=== PATIENT | female | born 2000 | race Hispanic/Latino ===

== ENCOUNTER 2019-12-24 18:54 | Emergency (ER) | payer OTHER ==
[2019-12-24] MEDS ORDERED: DICYCLOMINE HCL 10 MG/ML 2ML AMP IM ONE (19:57)
[2019-12-24] MEDS ORDERED: SIMETHICONE 80 MG TAB.CHEW ONE (19:57)
[2019-12-24] MEDS ORDERED: ONDANSETRON ODT 4 MG TAB ONE (19:57)
== END 2019-12-24 20:56 | disposition home or self-care (01) ==
LOC: EDH 18:54
DX: R19.7 Diarrhea, unspecified (principal); R11.10 Vomiting, unspecified
CPT/HCPCS: 96372; 99283; J0500

== ENCOUNTER 2020-05-19 08:54 | Emergency (ER) | payer MEDICAID, OTHER ==
[2020-05-19] MEDS ORDERED: ACETAMINOPHEN EXTRA STRENGTH 500 MG TABLET ONE (09:40)
== END 2020-05-19 11:08 | disposition home or self-care (01) ==
LOC: EDH 08:54
DX: O9A.211 Injury, poisoning and certain other consequences of external causes complicating pregnancy, first trimester (principal); S02.2XXA Fracture of nasal bones, initial encounter for closed fracture; S60.221A Contusion of right hand, initial encounter; S00.83XA Contusion of other part of head, initial encounter; S80.02XA Contusion of left knee, initial encounter; S20.319A Abrasion of unspecified front wall of thorax, initial encounter; Y08.89XA Assault by other specified means, initial encounter; Y93.89 Activity, other specified; Y92.89 Other specified places as the place of occurrence of the external cause; Y99.8 Other external cause status